=== PATIENT | male | born 1995 | race Caucasian/White ===

== ENCOUNTER 2019-11-30 18:22 | Emergency (ER) | payer OTHER ==
[~2019-11-30] VITALS: Ht 175.3 cm; Wt 67.1 kg
[2019-11-30 18:29] VITALS: Ht 175.3 cm; Wt 67.1 kg
[2019-11-30 20:42] VITALS: BP 112/49
== END 2019-11-30 20:42 | disposition home or self-care (01) ==
LOC: ED 18:22
DX: S81.831A Puncture wound without foreign body, right lower leg, initial encounter (principal); W22.8XXA Striking against or struck by other objects, initial encounter; Y93.89 Activity, other specified; Y92.89 Other specified places as the place of occurrence of the external cause; Y99.8 Other external cause status
CPT/HCPCS: 90715; Q0092